=== PATIENT | male | born 2000 | race Caucasian/White ===

== ENCOUNTER 2020-06-07 21:49 | Emergency (ER) | payer OTHER ==
[2020-06-07] MEDS ORDERED: XYLOCAINE 1% HCL 20 ML MDV IJ ONE (21:50)
[2020-06-07] MEDS ORDERED: Rocephin 500 MG INJ IM ONE (21:58)
[2020-06-07] MEDS ORDERED: Vibramycin 100 MG PO ONE (21:59)
[2020-06-07] MEDS ORDERED: Vibramycin 100 MG ONE (22:05)
[2020-06-07] MEDS ORDERED: Rocephin 500 MG INJ ONE (22:05)
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
[2020-06-07 22:08] VITALS: O2SAT 98
[2020-06-07 22:21] LABS: Appearance CLEAR (CLEAR); Bilirubin NEGATIVE (NEGATIVE); Blood NEGATIVE Ery/ul (0-5); Glucose NEGATIVE (NEGATIVE); Ketones NEGATIVE (NEGATIVE); Leukocyte Esterase NEGATIVE (NEGATIVE); Nitrite NEGATIVE (NEGATIVE); Protein,Urine Dip NEGATIVE (Negative); Urobilinogen NEGATIVE mg/dL (0-1)
[2020-06-07 23:01] VITALS: BP 143/75; PULSE 84
[2020-06-07 23:48] LABS: CHLAMYDIA DNA NOT DETECTED (NEGATIVE); GC DNA Probe NOT DETECTED (NEGATIVE)
--- NOTE | 2020-06-08 08:53 | XRAY ---
Indication: Left testicle torsion. Two-dimensional testicular sonogram performed. Comparison: None Both testicles are homogeneous in echogenicity with normal color perfusion. Right testicle measures 4.7 x 2.8 x 3.5 cm and the left measures 4.2 x 2.6 x 3.1 cm. Left epididymis demonstrates 4 mm cyst. Right epididymis unremarkable. No suspicious extra testicular mass or large hydrocele. Visualized scrotum incidentally demonstrates hyperemic color Doppler flow possibly inflammatory/infectious in etiology. Impression: 1. Negative for testicular torsion. Tiny left epididymal cyst. 2. Incidental scrotal hyperemic color Doppler flow. Rule out inflammatory/infectious process. Comment: Preliminary report was given.
== END 2020-06-07 23:00 | disposition home or self-care (01) ==
LOC: ED 21:49
DX: N50.812 Left testicular pain (principal)
CPT/HCPCS: 76870; 81001; 87491; 87591; 96372; 99284; J0696; A9270-GY